=== PATIENT | female | born 1975 | race African-American/Black ===

== ENCOUNTER 2020-10-20 07:15 | Day surgery (SDC) | payer BC ==
[2020-10-17 13:40] LABS: CALC OSMOLALITY 271 mosm/kg (275-300); CALCIUM 9.3 mg/dL (8.5-10.1); CARBON DIOXIDE 27.5 mmol/L (21.0-32.0); CHLORIDE - SERUM 100 mmol/L (98-107); CREATININE - SERUM 0.8 mg/dL (0.6-1.3); GLUCOSE 84 mg/dL (74-106); POTASSIUM - SERUM 3.9 mmol/L (3.5-5.1); SODIUM 137 mmol/L (136-145); UREA NITROGEN 9 mg/dL (7-18); eGFR NON AFRICAN AMERICAN 82 mL/min (90-120)
[2020-10-17 13:48] LABS: HEMATOCRIT 34.3 % (36.0-48.0); HEMOGLOBIN 10.7 g/dL (12-16); LYMPHOCYTE ABS# 3.57 10x3/uL (1.18-3.74); MCH 28.2 pg (26.0-34.0); MCHC 31.2 g/dL (31.0-37.0); MCV 90.3 fL (80.0-100.0); PLATELET COUNT 418 10x3/uL (130-400); RDW 13.2 % (11.5-14.5); WBC 6.2 10x3/uL (4.8-10.8)
[2020-10-17 14:33] LABS: LYMPHOCYTES 46 % (15-50); MONOCYTES 18 % (2-11); NEUTROPHILS 36 % (40-80); PLATELET ESTIMATE NORMAL
[~2020-10-20] VITALS: Ht 160 cm; Wt 114.3 kg
--- NOTE | ~2020-10-20 | OP ---
PATIENT NAME: RENNY ROBLES MEDICAL RECORD: [id number] :75 LOCATION:D[facility] ADMISSION DATE: SURGEON: RIGO OSMAN MD DATE OF OPERATION: 10/20/2020 DATE OF SERVICE: 10/20/2020 PREOPERATIVE DIAGNOSIS: Menorrhagia. POSTOPERATIVE DIAGNOSES: 1. Menorrhagia. 2. Uterine polyp. PROCEDURE PERFORMED: 1. Hysteroscopy. 2. Curettage and removal of polyp with Aveta resection system. 3. NovaSure uterine ablation. SURGEON: Rigo Osman MD ANESTHESIOLOGIST: Jose Angel Hughes MD ANESTHESIA: General. FINDINGS: Uterine cavity is 6.5 x 3.5 cm. There is a polypoid mass attached to the lower uterine body on the right side. Lush endometrium is encountered. Vaginal vault and cervix is unremarkable. SPECIMEN REMOVED: Endometrial curettings with polypoid mass. ESTIMATED BLOOD LOSS: Minimal. FLUIDS: 600 mL of lactated Ringer's. URINE OUTPUT: Quantity sufficient void prior to this procedure. COMPLICATIONS: None. DRAINS: None. INDICATIONS: The patient is a 45-year-old female with menometrorrhagia who desires uterine ablation. The patient has tried conservative therapy without success. The patient is consented for D&C, hysteroscopy with ablation and any indicated procedure. DESCRIPTION OF PROCEDURE: After informed consent was assured, the patient was taken to the operating room where anesthetic was obtained. The patient was in [facility] and prepped and draped. A speculum was introduced into the vagina and the cervix grasped with a single tooth tenaculum and dilated to accommodate the Aveta disposable hysteroscope. The uterine cavity was visualized with the above findings. The morcellator was now inserted into the device and using foot control the polyp was resected followed by endometrium. After resection of the endometrium, the cervix was father dilated and measured using the provided sound with the NovaSure device. The array was then inspected and then placed into the uterine cavity. After placing the array, the width was OPERATIVE REPORT [id number] RENNY ROBLES determined and both length and width was now in the NovaSure generator. After successful test sequence, the NovaSure device was activated with good regina noted at the close. The device was removed. Single tooth tenaculum was removed from the cervix and adequate hemostasis was noted. The speculum was removed. The patient was taken down from the [facility] and went to the recovery room in stable condition. TRANSINT:[id number] Voice Confirmation ID: [id number] DOCUMENT ID: [id number] RIGO OSMAN MD CC: [id number] DICTATION DATE: 11/18/20630 [employer] ENGINEER: 11/18/2049 [facility] 10/20/20 [place] [id number] [place] [id number]
[~2020-10-20 07:15] MED LIST: ERGOCALCIF50000 UNIT PO; HEMOCYTE PLUS C1 CAP PO; LOSARTAN-HCTZ1 EAC1 PO
[2020-10-20 08:21] VITALS: BP 149/69; Ht 160 cm; Wt 114.3 kg
[2020-10-20 08:28] LABS: HCG URINE NEGATIVE (NEGATIVE)
--- NOTE | 2020-10-20 16:33 | NUR ---
1152 PT MEDICATED FOR PAIN THAT SHE DESCRIBES A 6 OUT OF 10. 1234 PT STATES HER PAIN HAS DECREASED. PAIN LEVEL IS 4 OUT OF 10. IV DC'D. CATHETER TIP INTACT. NO BLEEDING AT IV SITE. BANDAID APPLIED. 1243 PT VOICES UNDERSTANDING OF DISCHARGE INSTRUCTIONS THAT WERE REVIEWED WITH HER. PT IS DRESSED AND READY FOR DISCHARGE HOME.
== END 2020-10-20 12:43 | disposition home or self-care (01) ==
LOC: D.OPS 07:15
PROVIDERS: Anesthesiology; ATTEND Obstetrics & Gynecology
DX: N93.9 Abnormal uterine and vaginal bleeding, unspecified (principal); N84.0 Polyp of corpus uteri; N88.2 Stricture and stenosis of cervix uteri; D25.9 Leiomyoma of uterus, unspecified